=== PATIENT | female | born 1970 | race Hispanic/Latino ===

== ENCOUNTER 2017-06-24 13:09 | Observation (INO) | payer OTHER ==
[~2017-06-24] VITALS: Ht 162.6 cm; Wt 57.8 kg
[2017-06-24 14:07] LABS: BASOPHILS % 0.2 % (0.0-1.0); EOSINOPHILS % 0.6 % (0.0-6.0); LYMPHOCYTES # (AUTO) 1.7 (1.0-3.2); LYMPHOCYTES % 37.1 % (18.0-39.1); MEAN CORPUSCULAR HEMOGLOBIN 16.2 pg (28-32); MEAN CORPUSCULAR HGB CONC 27.6 g/dL (31-35); MEAN CORPUSCULAR VOLUME 58.8 fL (81-99); MONOCYTES # (AUTO) 0.4 (0.2-0.8); MONOCYTES % 9.4 % (4.4-11.3); NEUTROPHILS # (AUTO) 2.4 (2.1-6.9); NEUTROPHILS % 52.5 % (38.7-80.0); PLATELET COUNT 337 x10e3/uL (140-360); RED BLOOD COUNT 3.76 x10e6/uL (3.6-5.1); RED CELL DISTRIBUTION WIDTH 20.8 % (11.7-14.4)
[2017-06-24 14:10] LABS: HEMATOCRIT 22.1 % (34.2-44.1); HEMOGLOBIN 6.1 g/dL (12.0-16.0)
[2017-06-24 14:31] LABS: ALANINE AMINOTRANSFERASE 15 IU/L (0-55); ALBUMIN 4.3 g/dL (3.5-5.0); ALKALINE PHOSPHATASE 46 IU/L (40-150); ANION GAP 11.6 mmol/L (8-16); BLOOD UREA NITROGEN 7 mg/dL (7-26); BUN/CREATININE RATIO 8 (6-25); CALCIUM 8.9 mg/dL (8.4-10.2); CARBON DIOXIDE 23 mmol/L (22-29); CHLORIDE 108 mmol/L (98-107); CREATININE, SERUM 0.84 mg/dL (0.57-1.11); EST GLOMERULAR FILTRATION RATE > 60 ML/MIN (60-); GLUCOSE 87 mg/dL (74-118); POTASSIUM 3.6 mmol/L (3.5-5.1); SODIUM 139 mmol/L (136-145)
[2017-06-24] MEDS ORDERED: ONDANSETRON HCL INJ 2 MG/ML VIAL IV PRN (15:15)
[2017-06-24] MEDS ORDERED: SODIUM CHLORIDE FLUSH 10 ML SYR INJ PRN (15:15)
[2017-06-24 15:36] LABS: % IRON SATURATION 2 % (15-50); IRON 12 ug/dL (50-170); TOTAL IRON BINDING CAPACITY 542 ug/dL (261-478); TRANSFERRIN 387 mg/dL (180-382)
[2017-06-24 15:56] LABS: THYROID STIMULATING HORMONE 0.721 uIU/mL (0.350-4.940)
[2017-06-24 15:57] LABS: FERRITIN < 1.00 ng/mL (4.63-204.00)
[2017-06-24 16:41] VITALS: BP 121/55
[2017-06-24] MEDS ORDERED: SODIUM CHLORIDE 0.9% 250ML 250 ML ONE (17:58)
--- NOTE | 2017-06-24 18:06 | Diagnostic Imaging Report ---
PROCEDURE:TRANSVAGINAL ULTRASOUND COMPARISON:None. INDICATIONS:DUB TECHNIQUE: Grayscale transverse and sagittal transabdominal and transvaginal images were obtained of the pelvis. Transvaginal imaging was medically necessary to better visualize the endometrium and ovaries. FINDINGS: UTERUS: The uterus is anteverted and measures 7.6 x 5.1 x 6.1 cm. The myometrium is diffusely heterogeneous. There is an 8mm myometrial cyst in the fundus. ENDOMETRIUM: The endometrium measures 1.0 cm in thickness. There is a nonspecific endometrial cyst which measures 5 mm. No focal endometrial mass. RIGHT OVARY: 1.9 x 1.2 x 1.2 cm. No suspicious right adnexal masses. LEFT OVARY: 3.1 x 2.3 x 2.4 cm. There is a 2.6 x 1.7 x 2.2 cm simple cyst in the left ovary which almost certainly represents a benign physiologic cyst. No left adnexal masses. There is a small amount of free fluid within the pelvis. CONCLUSION: Heterogeneous myometrium with a least one myometrial cyst. The findings are suspicious for uterine adenomyosis. Dictated by: Jh Munroe M.D. on 06/24/2017 at 18:05 Electronically approved by: Jh Munroe M.D. on 06/24/2017 at 18:05
[2017-06-24 20:00] VITALS: BP 104/55
[2017-06-24 20:20] VITALS: BP 104/55
[2017-06-24] MEDS ORDERED: SODIUM CHLORIDE 0.9% 250ML 250 ML IV ONE (22:15)
[2017-06-25] VITALS: BP 97/44
[2017-06-25 04:00] VITALS: BP 97/46
[2017-06-25 07:13] LABS: BASOPHILS % 0.2 % (0.0-1.0); EOSINOPHILS # (AUTO) 0.1 (0.0-0.4); EOSINOPHILS % 1.5 % (0.0-6.0); HEMATOCRIT 27.7 % (34.2-44.1); HEMOGLOBIN 8.2 g/dL (12.0-16.0); LYMPHOCYTES # (AUTO) 1.8 (1.0-3.2); LYMPHOCYTES % 35.5 % (18.0-39.1); MEAN CORPUSCULAR HEMOGLOBIN 19.4 pg (28-32); MEAN CORPUSCULAR HGB CONC 29.6 g/dL (31-35); MEAN CORPUSCULAR VOLUME 65.6 fL (81-99); MONOCYTES # (AUTO) 0.4 (0.2-0.8); MONOCYTES % 8.5 % (4.4-11.3); NEUTROPHILS # (AUTO) 2.8 (2.1-6.9); NEUTROPHILS % 54.1 % (38.7-80.0); PLATELET COUNT 323 x10e3/uL (140-360); RED BLOOD COUNT 4.22 x10e6/uL (3.6-5.1); RED CELL DISTRIBUTION WIDTH 26.3 % (11.7-14.4)
[2017-06-25 07:35] VITALS: BP 97/46
[2017-06-25 07:44] LABS: ANION GAP 11.7 mmol/L (8-16); BLOOD UREA NITROGEN 8 mg/dL (7-26); BUN/CREATININE RATIO 10 (6-25); CALCIUM 8.8 mg/dL (8.4-10.2); CARBON DIOXIDE 23 mmol/L (22-29); CHLORIDE 107 mmol/L (98-107); CREATININE, SERUM 0.82 mg/dL (0.57-1.11); EST GLOMERULAR FILTRATION RATE > 60 ML/MIN (60-); GLUCOSE 87 mg/dL (74-118); MAGNESIUM 2.2 MG/DL (1.3-2.1); PHOSPHORUS 3.2 MG/DL (2.3-4.7); POTASSIUM 3.7 mmol/L (3.5-5.1); SODIUM 138 mmol/L (136-145)
[2017-06-25 07:47] VITALS: BP 113/49
[2017-06-25 10:37] LABS: ELLIPTOCYTE, RBC SLIGHT; HYPOCHROMASIA MODERATE; PLATELET ESTIMATE ADEQUATE; PLATELET MORPHOLOGY COMMENT NORMAL
[2017-06-25 10:38] LABS: ANISOCYTOSIS SLIG; POIKILOCYTOSIS SLIGHT; RBC MORPHOLOGY COMMENT NORMAL
[2017-06-25] MEDS ORDERED: SODIUM CHLORIDE 0.9% 250ML 250 ML IV ONE (10:45)
[2017-06-25 11:56] VITALS: BP 102/45
[2017-06-25 15:49] VITALS: BP 103/51
== END 2017-06-25 16:19 | disposition home or self-care (01) ==
LOC: ER 13:09 → MED/SURG 15:44 → INTOOBSV 15:44 → ERHOLD 15:44
DX: D50.0 Iron deficiency anemia secondary to blood loss (chronic) (principal); N92.0 Excessive and frequent menstruation with regular cycle
CPT/HCPCS: 36415 ×2; 36430 ×2; 76830; 80048; 80053; 82607; 82728; 83540; 83735; 84100; 84207; 84443; 84466; 85025 ×2; 86850; 86900; 86920; 99283; G0378 ×2; J7050 ×2; P9016 ×2

== ENCOUNTER → 2017-07-04 | Outpatient (CLI) | payer OTHER ==
--- NOTE | 2017-07-10 08:20 | Diagnostic Imaging Report ---
#[id number] - [facility] #BILATERAL DIGITAL SCREENING MAMMOGRAM WITH CAD: 07/04/2017 CLINICAL: Routine screening. Comparison is made to exam dated: 02/11/2014 mammogram - [facility]. Current study contains 4 films. The tissue of both breasts is heterogeneously dense. This may lower the sensitivity of mammography. Current study was also evaluated with a Computer Aided Detection (CAD) system. There is a benign calcification in the left breast. No significant masses, calcifications, or other findings are seen in either breast. There has been no significant interval change. IMPRESSION: BENIGN There is no mammographic evidence of malignancy. A 1 year screening mammogram is recommended. The patient will be notified by letter of the results. Ramez ha/karen:07/09/2017 11:31:42 Air Brush Operator: Shonna TEJADA(R)(M), [facility] letter sent: Compared to Prior B9 Mammogram BI-RADS: 2 Benign
== END ==
LOC: MAMMO 13:34
PROVIDERS: ATTEND Obstetrics & Gynecology
DX: Z12.31 Encounter for screening mammogram for malignant neoplasm of breast (principal)
CPT/HCPCS: 77067

== ENCOUNTER → 2019-09-21 | Outpatient (CLI) | payer SELFPAY | LOC: MAMMO 12:24 | PROVIDERS: ATTEND Specialist | DX: Z12.31 Encounter for screening mammogram for malignant neoplasm of breast (principal) | CPT/HCPCS: 77067 ==

== ENCOUNTER → 2022-10-05 | Outpatient (CLI) | payer BC | LOC: MAMMO 14:40 | PROVIDERS: ATTEND Obstetrics & Gynecology | DX: Z12.31 Encounter for screening mammogram for malignant neoplasm of breast (principal) | CPT/HCPCS: 77067 ==

== ENCOUNTER → 2024-11-18 | Outpatient (REF) | payer BC | LOC: MAMMO 15:38 | PROVIDERS: ATTEND Obstetrics & Gynecology | DX: Z12.31 Encounter for screening mammogram for malignant neoplasm of breast (principal) | CPT/HCPCS: 77067 ==